=== PATIENT | male | born 1980 | race Hispanic/Latino ===

== ENCOUNTER → 2022-06-18 | Outpatient (CLI) | payer BC ==
[~2022-06-18] MED LIST: LIDOCAINE HCL 4% LTA SOL 4 ML VIAL TP ONE
== END | disposition home or self-care (01) ==
LOC: WHH 09:06
PROVIDERS: ATTEND Family Medicine
DX: T81.31XA Disruption of external operation (surgical) wound, not elsewhere classified, initial encounter (principal); G89.29 Other chronic pain; E66.01 Morbid (severe) obesity due to excess calories; M86.68 Other chronic osteomyelitis, other site; Z68.35 Body mass index [BMI] 35.0-35.9, adult; Z79.899 Other long term (current) drug therapy; Z72.0 Tobacco use; Y83.8 Other surgical procedures as the cause of abnormal reaction of the patient, or of later complication, without mention of misadventure at the time of the procedure; Y92.238 Other place in hospital as the place of occurrence of the external cause
CPT/HCPCS: 11042; 11045; A6248; A4450

== ENCOUNTER → 2022-06-25 | Outpatient (CLI) | payer BC | END | disposition home or self-care (01) | LOC: WHH 08:28 | PROVIDERS: ATTEND Family Medicine | DX: T81.31XD Disruption of external operation (surgical) wound, not elsewhere classified, subsequent encounter (principal); T81.31XA Disruption of external operation (surgical) wound, not elsewhere classified, initial encounter; G89.29 Other chronic pain; E66.01 Morbid (severe) obesity due to excess calories; M86.68 Other chronic osteomyelitis, other site; Z68.35 Body mass index [BMI] 35.0-35.9, adult; Z79.899 Other long term (current) drug therapy; Z72.0 Tobacco use; Y92.238 Other place in hospital as the place of occurrence of the external cause; Y83.8 Other surgical procedures as the cause of abnormal reaction of the patient, or of later complication, without mention of misadventure at the time of the procedure | CPT/HCPCS: 11042; 87070; 87077; 87186; A6248; A6260 ==

== ENCOUNTER → 2022-07-04 | Outpatient (CLI) | payer BC | END | disposition home or self-care (01) | LOC: WHH 08:47 | PROVIDERS: ATTEND Family Medicine | DX: T81.31XD Disruption of external operation (surgical) wound, not elsewhere classified, subsequent encounter (principal); G89.29 Other chronic pain; E66.01 Morbid (severe) obesity due to excess calories; M86.68 Other chronic osteomyelitis, other site; Z68.35 Body mass index [BMI] 35.0-35.9, adult; Z79.899 Other long term (current) drug therapy; Z72.0 Tobacco use; Y83.8 Other surgical procedures as the cause of abnormal reaction of the patient, or of later complication, without mention of misadventure at the time of the procedure | CPT/HCPCS: 11042; A6248; A6260 ==

== ENCOUNTER → 2022-08-06 | Outpatient (CLI) | payer BC | END | disposition home or self-care (01) | LOC: WHH 08:21 | PROVIDERS: ATTEND Family Medicine | DX: T81.31XD Disruption of external operation (surgical) wound, not elsewhere classified, subsequent encounter (principal); G89.29 Other chronic pain; E66.01 Morbid (severe) obesity due to excess calories; M86.68 Other chronic osteomyelitis, other site; Z68.35 Body mass index [BMI] 35.0-35.9, adult; Z79.899 Other long term (current) drug therapy; Z72.0 Tobacco use; Y83.8 Other surgical procedures as the cause of abnormal reaction of the patient, or of later complication, without mention of misadventure at the time of the procedure | CPT/HCPCS: 11042; 11045; 97605 ==

== ENCOUNTER → 2022-09-03 | Outpatient (CLI) | payer BC | END | disposition home or self-care (01) | LOC: WHH 08:25 | PROVIDERS: ATTEND Family Medicine | DX: T81.31XD Disruption of external operation (surgical) wound, not elsewhere classified, subsequent encounter (principal); S81.801D Unspecified open wound, right lower leg, subsequent encounter; S81.001D Unspecified open wound, right knee, subsequent encounter; G89.29 Other chronic pain; E66.01 Morbid (severe) obesity due to excess calories; M86.68 Other chronic osteomyelitis, other site; Z68.35 Body mass index [BMI] 35.0-35.9, adult; Z79.899 Other long term (current) drug therapy; Z72.0 Tobacco use; X58.XXXD Exposure to other specified factors, subsequent encounter; Y83.8 Other surgical procedures as the cause of abnormal reaction of the patient, or of later complication, without mention of misadventure at the time of the procedure | CPT/HCPCS: 11042; 11045; 73590; 87070; 87077; 87186; 97605 ==

== ENCOUNTER → 2022-09-17 | Outpatient (CLI) | payer BC | END | disposition home or self-care (01) | LOC: WHH 08:22 | PROVIDERS: ATTEND Family Medicine | DX: T81.31XD Disruption of external operation (surgical) wound, not elsewhere classified, subsequent encounter (principal); S81.801D Unspecified open wound, right lower leg, subsequent encounter; S81.001D Unspecified open wound, right knee, subsequent encounter; G89.29 Other chronic pain; E66.01 Morbid (severe) obesity due to excess calories; M86.68 Other chronic osteomyelitis, other site; Z68.35 Body mass index [BMI] 35.0-35.9, adult; Z79.899 Other long term (current) drug therapy; Z72.0 Tobacco use; X58.XXXD Exposure to other specified factors, subsequent encounter; Y83.8 Other surgical procedures as the cause of abnormal reaction of the patient, or of later complication, without mention of misadventure at the time of the procedure | CPT/HCPCS: 97605 ==

== ENCOUNTER → 2022-10-01 | Outpatient (CLI) | payer BC | END | disposition home or self-care (01) | LOC: WHH 08:12 | PROVIDERS: ATTEND Family Medicine | DX: T81.31XD Disruption of external operation (surgical) wound, not elsewhere classified, subsequent encounter (principal); S81.801D Unspecified open wound, right lower leg, subsequent encounter; S81.001D Unspecified open wound, right knee, subsequent encounter; G89.29 Other chronic pain; E66.01 Morbid (severe) obesity due to excess calories; M86.68 Other chronic osteomyelitis, other site; Z68.35 Body mass index [BMI] 35.0-35.9, adult; Z79.899 Other long term (current) drug therapy; Z72.0 Tobacco use; X58.XXXD Exposure to other specified factors, subsequent encounter; Y83.8 Other surgical procedures as the cause of abnormal reaction of the patient, or of later complication, without mention of misadventure at the time of the procedure | CPT/HCPCS: 99214; A6021; A6209 ==

== ENCOUNTER → 2022-10-15 | Outpatient (CLI) | payer BC | END | disposition home or self-care (01) | LOC: WHH 07:54 | PROVIDERS: ATTEND Family Medicine | DX: T81.31XD Disruption of external operation (surgical) wound, not elsewhere classified, subsequent encounter (principal); S81.801D Unspecified open wound, right lower leg, subsequent encounter; S81.001D Unspecified open wound, right knee, subsequent encounter; G89.29 Other chronic pain; E66.01 Morbid (severe) obesity due to excess calories; M86.68 Other chronic osteomyelitis, other site; Z68.35 Body mass index [BMI] 35.0-35.9, adult; Z79.899 Other long term (current) drug therapy; Z72.0 Tobacco use; X58.XXXD Exposure to other specified factors, subsequent encounter; Y83.8 Other surgical procedures as the cause of abnormal reaction of the patient, or of later complication, without mention of misadventure at the time of the procedure | CPT/HCPCS: 11042; A6021; A6209; A4450 ==